=== PATIENT | male | born 1940 | race Caucasian/White ===

== ENCOUNTER → 2017-08-28 | Outpatient (CLI) | payer OTHER | LOC: CIMAGING 10:16 | PROVIDERS: ATTEND Orthopaedic Surgery | DX: M17.11 Unilateral primary osteoarthritis, right knee (principal) | CPT/HCPCS: 73700-PO ==

== ENCOUNTER 2017-09-13 05:50 | Observation (INO) | payer OTHER ==
[2017-09-13] MEDS ORDERED: BUPI/epINEPH/KETOROLAC IU ONE (06:00)
[2017-09-13] MEDS ORDERED: TRANEXAMIC ACID 3,000 MG in NS (SYRINGE) 50 ML IRR ONE (06:00)
[2017-09-13] MEDS ORDERED: ROPIVACAINE 0.2% 80 MG, EPINEPHrine 0.2 MG, KETOROLAC TROMETHAMINE 30 MG in SYRINGE 0 ML IU ONE (06:00)
[2017-09-13] MEDS ORDERED: DEXAMETHASONE 4 MG/ML VIAL IVP ONE (06:02)
[2017-09-13] MEDS ORDERED: FAMOTIDINE 20 MG TAB PO ONE (06:02)
[2017-09-13] MEDS ORDERED: ACETAMINOPHEN 325 MG TAB PO ONE (06:02)
[2017-09-13] MEDS ORDERED: ceFAZolin 2 GM/SWFI 2 GM/20 ML SYR IVP ONE (06:02)
[2017-09-13] MEDS ORDERED: LIDOCAINE 1% 2 ML INJ ONE (06:08)
--- NOTE | 2017-09-13 06:13 | PDHPUP ---
History & Physical Update H&P update statement: This history and physical update is based on an assessment of the patient which was completed after admission or registration (within 24 hours), but prior to the surgery/procedure. H&P update: H&P reviewed & patient examined, no change in patient's condition since H&P completed
[2017-09-13] MEDS ORDERED: LR 1,000 ML IV ONE (06:29)
[2017-09-13] MEDS ORDERED: LIDOCAINE 1% 5 ML SDV ID PRN (06:29)
[2017-09-13] MEDS ORDERED: TRANEXAMIC ACID 3,000 MG/50 ML BAG IRR ONE (06:34)
[2017-09-13] MEDS ORDERED: MIDAZOLAM 2 MG/2 ML VIAL IVP ONE (06:54)
--- NOTE | 2017-09-13 06:54 | PDANEPAE ---
ANE History of Present Illness 77 yo for tka ANE Past Medical History - Cardiovascular History Hx Hypertension: Yes Hx Arrhythmias: No Hx Chest Pain: No Hx Coronary Artery / Peripheral Vascular Disease: No Hx CHF / Valvular Disease: No Hx Palpitations: No - Pulmonary History Hx COPD: No Hx Asthma/Reactive Airway Disease: No Hx Recent Upper Respiratory Infection: No Hx Oxygen in Use at Home: No Hx Sleep Apnea: No Sleep Apnea Screening Result - Last Documented: Positive - Neurologic History Hx Cerebrovascular Accident: No Hx Seizures: No Hx Dementia: No - Endocrine History Hx Diabetes: No Endocrine History Comment: HYPOTHYROID - Renal History Hx Renal Disorders: No - Liver History Hx Hepatic Disorders: No - Neurological & Psychiatric Hx Hx Neurological and Psychiatric Disorders: No - Cancer History Hx Cancer: Yes Cancer History Comment: SKIN - Congenital Disorder History Hx Congenital Disorders: No - GI History Hx Gastrointestinal Disorders: No - Other Health History Other Health History: MISSING TOOTH. LEUKOCYTOSIS - Chronic Pain History Chronic Pain: No - Surgical History Prior Surgeries: R HERNIA REPAIR. APPENDECTOMY. RT.KNEE SCOPE. LT.ING HERNIA. TONSILLECTOMY. left hip replacement ANE Review of Systems Review of Systems: - Exercise capacity METS (RN): 4 METS ANE Patient History - Allergies Allergies/Adverse Reactions: No Known Allergies Allergy (Verified 08/22/17 11:11) - Home Medications Home medications: home medication list seen and reviewed Home Medications: Cholecalciferol Vit D3 [Vitamin D3 (*)] 2,000 units PO DAILY 01/04/16 [Last Taken 1 Month Ago ~01/23/16] Levothyroxine [Synthroid 88 mcg (*)] 88 mcg PO DAILY06 01/04/16 [Last Taken 10/02] Lisinopril [Zestril 20 mg (*)] 20 mg PO DAILY 01/04/16 [Last Taken 02/21/16] Simvastatin [Zocor] 40 mg PO DAILY 01/04/16 [Last Taken 02/22/16] Glucosamine/Chondroitin [Glucosamine/Chondroitin (*)] 1 each PO BID 02/22/16 [ Last Taken Unknown] Aspirin [Aspirin 81mg (*)] 81 mg PO HS 08/20/17 [Last Taken Unknown] - NPO status NPO Status: no food or drink >8 hours NPO Since - Liquids (Date): 09/13/17 NPO Since - Liquids (Time): 01:00 NPO Since - Solids (Date): 09/13/17 NPO Since - Solids (Time): 18:00 - Anes Hx Hx Anesthesia Complications (with details): pt reports difficult intubation 20 years ago - Smoking Hx Smoking Status: Former smoker - Family Anes Hx Family Hx Anesthesia Complications: none ANE Labs/Vital Signs - Vital Signs Blood Pressure: 137/82 Heart Rate: 76 Respiratory Rate: 14 O2 Sat (%): 95 Height: 6 ft Weight: 99.79 kg ANE Physical Exam - Airway Neck exam: FROM Mallampati Score: Class 2 - Pulmonary Pulmonary: no respiratory distress - Cardiovascular Cardiovascular: regular rate and rhythym - ASA Status ASA Status: II ANE Anesthesia Plan Anesthesia Plan: spinal
[2017-09-13] MEDS ORDERED: MIDAZOLAM 2 MG/2 ML VIAL ONE (06:55)
[2017-09-13] MEDS ORDERED: PROPOFOL/EMULSION 500 MG/50 ML BOTTLE IV ONE (07:03)
[2017-09-13] MEDS ORDERED: fentaNYL 250 MCG/5 ML INJ ONE (07:19)
[2017-09-13] MEDS ORDERED: ONDANSETRON 4 MG/2 ML VIAL IVP PRN ×2 (07:22→08:26)
[2017-09-13] MEDS ORDERED: CYCLOBENZAPRINE 10 MG TAB PO PRN (07:22)
[2017-09-13] MEDS ORDERED: oxyCODONE IR 5 MG TAB PO PRN (07:22)
[2017-09-13] MEDS ORDERED: ONDANSETRON DISINTEGRATING 4 MG TAB PO PRN (07:22)
[2017-09-13] MEDS ORDERED: POLYETHYLENE GLYCOL 3350 17 GM PKT PO PRN (07:22)
[2017-09-13] MEDS ORDERED: LACTULOSE 20 GM/30 ML UDCUP PO PRN (07:22)
[2017-09-13] MEDS ORDERED: MAGNESIUM HYDROXIDE 30 ML UDCUP PO PRN (07:22)
[2017-09-13] MEDS ORDERED: diphenhydrAMINE 25 MG CAP PO PRN (07:22)
[2017-09-13] MEDS ORDERED: PROMETHAZINE HCL 25 MG/ML INJ IVP PRN (07:22)
[2017-09-13] MEDS ORDERED: TEMAZEPAM 15 MG CAP PO PRN (07:22)
[2017-09-13] MEDS ORDERED: DIPHENOXYLATE/ATROPINE LOMOTIL 1 TAB PO PRN (07:22)
[2017-09-13] MEDS ORDERED: BISACODYL 10 MG SUPP PR PRN (07:22)
[2017-09-13] MEDS ORDERED: PROMETHAZINE HCL 25 MG SUPPR PR PRN (07:22)
[2017-09-13] MEDS ORDERED: METOCLOPRAMIDE 10 MG/2 ML VIAL IVP PRN (07:22)
[2017-09-13] MEDS ORDERED: LR 1,000 ML IV SCH (07:30)
[2017-09-13] MEDS ORDERED: ROPIVACAINE HCL 150 MG/30 ML INJ ONE (08:22)
[2017-09-13] MEDS ORDERED: HYDROmorphONE/DILAUDID 2 MG/ML INJ IVP PRN (08:26)
[2017-09-13] MEDS ORDERED: NALOXONE HCL 0.4 MG/ML INJ IVP PRN (08:26)
[2017-09-13] MEDS ORDERED: fentaNYL 100 MCG/2 ML INJ IVP PRN (08:26)
--- NOTE | 2017-09-13 08:40 | POSTOPPROG ---
Post Op Note Date of Operation: 09/13/17 Surgeon: Eunice Sanchez Burial Agent: amy sanchez Anesthesiologist: dr. burris Anesthesia: Spinal, Other (Specify) (adductor canal block) Pre-op Diagnosis: right knee OA Post-op Diagnosis: same Indication: right knee pain Procedure: R TKA robot assisted Findings: severe knee OA Inf/Abcess present in the surg proc area at time of surgery?: No EBL: 50-100
--- NOTE | 2017-09-13 09:53 | POSTANESTH ---
Post Anesthetic Evaluation Cardiovascular Status: Normal, Stable Respiratory Status: Normal, Stable Level of Consciousness/Mental Status: Can Participate in Eval Pain Control: Adequate, Prn Tx Ordered Nausea/Vomiting Control: Adequate, Prn Tx Ordered
[2017-09-13] MEDS: ATORVASTATIN CALCIUM 20 MG TAB PO SCH (12:16)
[2017-09-13] MEDS: ACETAMINOPHEN 325 MG TAB PO SCH ×3 (12:16→23:34)
[2017-09-13] MEDS: SENNOSIDES/DOCUSATE SODIUM TAB PO SCH ×2 (12:17→20:17)
[2017-09-13] MEDS ORDERED: ceFAZolin 2 GM/DEXTROSE 100 ML IV SCH (14:00)
--- NOTE | 2017-09-13 15:25 | GOP ---
[f rep st] OPERATIVE REPORT DATE OF OPERATION: 09/13/2017 SURGEON: Diego Parsons MD GUEST SERVICE REPRESENTATIVE: Nellie Parsons, CEZAR. ANESTHESIA: Spinal. PREOPERATIVE DIAGNOSIS: Right knee osteoarthritis. POSTOPERATIVE DIAGNOSIS: Right knee osteoarthritis. PROCEDURE PERFORMED: Right total knee arthroplasty with computer navigation, robotic assist. FINDINGS: Type II VMO. ESTIMATED BLOOD LOSS: 30 cc. INDICATIONS: The patient is a 77-year-old male with severe and progressive pain and deformity of the right knee unresponsive to conservative care. The risks and benefits of surgical intervention were e xplained in detail. DESCRIPTION OF PROCEDURE: The patient was brought to the operative room and placed on the table in t he supine position. Spinal anesthesia was induced without difficulty. A pneumatic tourniquet was appl ied about the right proximal thigh, and the leg was prepped and draped in a sterile fashion. The leg simons was applied. After exsanguination by elevation the tourniquet was inflated to 250 mmHg. Incision was made anterior medial from the tibial tuberosity to a point 2 cm proximal to the superior pole of the patella. Medial parapatellar arthrotomy was carried out from the superior pole of the pa tella and posteriorly in line with the fibers of the Type II VMO. The medial collateral ligament was elevated and the infrapatellar fat pad was resected. The patella was everted and the articular surface was excised. A 40 mm patellar button was placed. Attention was turned first to the distal aspect of the femur. After exposure of the femur, 2 half pin s were placed for fixation of the femoral array. In a similar fashion, 2 pins were placed anteromedia l on the tibia for fixation of the tibial array. External land marking and registration of the hip ce nter was performed without difficulty. Internal femoral and tibial registration was carried out witho ut difficulty and the femoral and tibial checkpoints were placed and verified for accuracy. Attention was turned to the femur. The foot print for the size 8 femoral component was cut with the s aw using the [employer] robotic system and verified for accuracy against the CT based plan. In a similar fas hion, the saw was used to cut the footprint for the size 8 tibial component using the [place] system and verified for accuracy against the CT based plan. The tibial articular surface was excised without dif ficulty, followed by the intercondylar box cut. The knee was extended and the remnants of the medial and lateral meniscus were excised. The posterior capsule was injected with ropivacaine, epinephrine and Toradol. A size 8 tibial tray was positioned. Trial reduction was then carried out. There was excellent range of motion, alignment, and stability using the 8 x 9 mm polyethylene. All trials were then removed. The joint was thoroughly irrigated and carefully dried. The press fit c omponents were implanted. The permanent 9 mm polyethylene X3 was placed without difficulty. The tourniquet was deflated and all bleeders were coagulated. The wound was thoroughly irrigated and closed using interrupted sutures of 2-0 Vicryl for the joint capsule. The subcu was closed with 3-0 V icryl and the skin with 4-0 Monocryl. Dermabond and Steri-Strips were applied followed by a compressi ve dressing. The patient was then moved from the operating room to the recovery room in good conditio n, having tolerated the procedure well. PATHOLOGY: Severe medial and patellofemoral osteoarthritis. /[id number]/MODL
[2017-09-13] MEDS: ceFAZolin 2 GM/SWFI 2 GM/20 ML SYR IVP SCH ×2 (16:15→23:35)
[2017-09-13] MEDS: ASPIRIN 81 MG CHEWABLE TAB PO SCH (20:17)
[2017-09-13] MEDS: FAMOTIDINE 20 MG TAB PO SCH (20:17)
[2017-09-14] MEDS: ACETAMINOPHEN 325 MG TAB PO SCH (05:26)
[2017-09-14] MEDS ORDERED: LEVOTHYROXINE 88 MCG TAB PO SCH (06:00)
[2017-09-14 07:33] VITALS: BP 126/62
[2017-09-14] MEDS: FAMOTIDINE 20 MG TAB PO SCH (07:53)
[2017-09-14] MEDS: ATORVASTATIN CALCIUM 20 MG TAB PO SCH (07:54)
[2017-09-14] MEDS: ASPIRIN 81 MG CHEWABLE TAB PO SCH (07:55)
[2017-09-14] MEDS: SENNOSIDES/DOCUSATE SODIUM TAB PO SCH (07:56)
[2017-09-14] MEDS ORDERED: LISINOPRIL 20 MG TAB PO SCH (09:00)
--- NOTE | 2017-09-16 10:06 | GDS ---
[f rep st] DISCHARGE SUMMARY ADMISSION DIAGNOSIS: Right knee osteoarthritis. DISCHARGE DIAGNOSIS: Right knee osteoarthritis. PROCEDURE: Right total knee arthroplasty VTE PROPHYLAXIS: Recommend aspirin 81 mg twice daily for 4 weeks. BRIEF DESCRIPTION OF HOSPITAL STAY: Patient was admitted for an elective joint arthroplasty. The pa joanne tolerated the procedure well and has passed physical therapy. The patient was given appropriat e antibiotic prophylaxis and venous thromboembolism prophylaxis. The patient's pain was well control led on oral pain medication, patient was holding down food, and had urinated. Decision was made to d ischarge the patient. The patient was given post-operative prescriptions pre-operatively. PLAN: To follow up as scheduled with Dr. Parsons October 03 at 11:00 a.m. /[id number]/MODL
== END 2017-09-14 11:42 | disposition home or self-care (01) ==
LOC: F3N 05:50
PROVIDERS: ADMIT Orthopaedic Surgery; ATTEND Orthopaedic Surgery
PROC: 0SRC0JZ Replacement of Right Knee Joint with Synthetic Substitute, Open Approach (ICD-10-PCS; principal; 2017-09-13 07:15)
PROC: 8E0YXBZ Computer Assisted Procedure of Lower Extremity (ICD-10-PCS; principal; 2017-09-13 07:15)
DX: M17.11 Unilateral primary osteoarthritis, right knee (principal); E78.5 Hyperlipidemia, unspecified; I10 Essential (primary) hypertension; E03.9 Hypothyroidism, unspecified; Z96.642 Presence of left artificial hip joint; Z87.891 Personal history of nicotine dependence
CPT/HCPCS: 20985; 27447; 73560; 88311; 97110; 97116; 97161; 97165; C1776; G0378; G8978; G8979; G8980; G8984; G8985; G8986; J0171; J0690; J1100; J1885; J2250; J2704; J2795; J3010